=== PATIENT | male | born 1960 | race Caucasian/White ===

== ENCOUNTER 2016-09-13 05:34 | Emergency (ER) | payer OTHER ==
[~2016-09-13] VITALS: Ht 177.8 cm; Wt 72.6 kg
[~2016-09-13 05:34] MED LIST: AMOXICILLIN500 MG PO; ANAPROX DS550 MG PO; FLEXERIL10 MG PO; FLEXERIL5 MG PO; HYDROCODONE BIT1 T11 PO; MOTRIN800 MG PO; NORCO 325 MG-51 TAB PO; ULTRAM50 MG PO
[2016-09-13] MEDS ORDERED: AMOXICILLIN500 M2 PO (05:58)
[2016-09-13] MEDS ORDERED: Motrin,Rufen800 MG PO (05:58)
== END 2016-09-13 06:27 | disposition home or self-care (01) ==
LOC: ED 05:34
DX: K04.7 Periapical abscess without sinus (principal); H92.01 Otalgia, right ear; Z88.0 Allergy status to penicillin

== ENCOUNTER 2018-01-20 18:33 | Emergency (ER) | payer OTHER ==
[~2018-01-20] VITALS: Ht 177.8 cm; Wt 72.6 kg
[~2018-01-20 18:33] MED LIST changes: +AMOXICILLIN500 M2 PO; +Motrin,Rufen800 MG PO
[2018-01-20 19:08] LABS: BILIRUBIN NEGATIVE (NEGATIVE); BLOOD NEGATIVE (NEGATIVE); CLARITY SL CLOUDY (CLEAR); COLOR YELLOW (YELLOW); GLUCOSE NEGATIVE (NEGATIVE); KETONE NEGATIVE (NEGATIVE); LEUKO ESTERASE NEGATIVE (NEGATIVE); NITRITE NEGATIVE (NEGATIVE); PH 8.5 (5.0-9.0); SPECIFIC GRAVITY 1.015 (1.005-1.030); UROBILINOGEN 0.2 E.U./dl (0.2-1.0)
[2018-01-20 19:16] LABS: BACTERIA 1+; EPITHELIAL CELLS 0-2
[2018-01-20] MEDS ORDERED: NAPROSYN500 MG PO (20:07)
[2018-01-20] MEDS ORDERED: CYCLOBENZAPRINE10 MG PO (20:07)
[2018-01-20] MEDS ORDERED: PREDNISONE20 M1 PO (20:07)
== END 2018-01-20 20:13 | disposition home or self-care (01) ==
LOC: ED 18:33
PROVIDERS: Nurse Practitioner Family
DX: M54.5 Low back pain (principal); M62.830 Muscle spasm of back; Z88.0 Allergy status to penicillin

== ENCOUNTER 2018-02-11 01:12 | Emergency (ER) | payer OTHER ==
[~2018-02-11] VITALS: Ht 177.8 cm; Wt 72.6 kg
[~2018-02-11 01:12] MED LIST changes: +CYCLOBENZAPRINE10 MG PO; +NAPROSYN500 MG PO; +PREDNISONE20 M1 PO
== END 2018-02-11 04:08 | disposition home or self-care (01) ==
LOC: ED 01:12
DX: S46.911A Strain of unspecified muscle, fascia and tendon at shoulder and upper arm level, right arm, initial encounter (principal); S20.211A Contusion of right front wall of thorax, initial encounter; S09.90XA Unspecified injury of head, initial encounter; Z88.0 Allergy status to penicillin; Z79.899 Other long term (current) drug therapy; W01.10XA Fall on same level from slipping, tripping and stumbling with subsequent striking against unspecified object, initial encounter; Y93.89 Activity, other specified; Y92.89 Other specified places as the place of occurrence of the external cause; Y99.8 Other external cause status

== ENCOUNTER 2021-04-06 08:07 | Emergency (ER) | payer OTHER ==
[~2021-04-06] VITALS: Ht 177.8 cm; Wt 68.5 kg
[2021-04-06 10:18] LABS: BASO # 0.1 10*3/uL (0.0-0.1); BASO % 0.5 % (0.0-1.0); EOS # 0.2 10*3/uL (0.0-0.4); EOS % 1.8 % (1.0-4.0); HEMATOCRIT 49.3 % (42.0-52.0); LYMPH # 2.9 10*3/uL (1.3-4.4); LYMPH % 22.8 % (27.0-41.0); MEAN CELL VOLUME 86.2 fl (80.0-94.0); MEAN CORPUSCULAR HGB 29.2 pg (27.0-31.0); MEAN CORPUSCULAR HGB CONC 33.9 g/dl (33.0-37.0); MEAN PLATELET VOLUME 10.9 fl (9.6-12.3); MONO # 0.7 10*3/uL (0.1-1.0); MONO % 5.2 % (3.0-9.0); NEUT # 8.9 10*3/uL (2.3-7.9); NEUT % 69.2 % (47.0-73.0); PLATELET COUNT AUTOMATED 200 10*3/uL (130-400); RED BLOOD COUNT 5.72 10*6/uL (4.50-5.90); RED CELL DISTRI WIDTH 13.2 % (0-14.5); WHITE BLOOD COUNT 12.8 10*3/uL (4.8-10.8)
[2021-04-06 10:33] LABS: ALKALINE PHOSPHATASE 62 U/L (45-117); BUN 11 mg/dl (7-24); CHLORIDE 110 mmol/L (98-107); CREATININE 0.68 mg/dL (0.70-1.30); SGOT/AST 12 IU/L (3-35); SGPT/ALT 20 U/L (12-78); SODIUM 140 mmol/L (136-145); TOTAL PROTEIN 7.6 gm/dL (6.4-8.2)
== END 2021-04-06 12:00 | disposition left against medical advice (07) ==
LOC: ED 08:07
PROVIDERS: Emergency Medicine
DX: R51.9 Headache, unspecified (principal)

== ENCOUNTER 2022-07-09 13:53 | Emergency (ER) | payer OTHER | END 2022-07-09 14:56 | disposition left against medical advice (07) | LOC: ED 13:53 | DX: S09.90XA Unspecified injury of head, initial encounter (principal); Z53.21 Procedure and treatment not carried out due to patient leaving prior to being seen by health care provider; X58.XXXA Exposure to other specified factors, initial encounter; Y93.89 Activity, other specified; Y92.89 Other specified places as the place of occurrence of the external cause; Y99.8 Other external cause status ==

== ENCOUNTER 2023-01-14 19:14 | Emergency (ER) | payer OTHER | END 2023-01-14 20:29 | disposition left against medical advice (07) | LOC: ED 19:14 | DX: M54.2 Cervicalgia (principal); Z88.0 Allergy status to penicillin; Z53.21 Procedure and treatment not carried out due to patient leaving prior to being seen by health care provider ==

== ENCOUNTER 2023-05-05 13:18 | Emergency (ER) | payer OTHER ==
[~2023-05-05] VITALS: Ht 177.8 cm; Wt 70.3 kg
[2023-05-05] MEDS ORDERED: OMNICEF300 MG PO (14:32)
== END 2023-05-05 14:41 | disposition home or self-care (01) ==
LOC: ED 13:18
DX: H66.91 Otitis media, unspecified, right ear (principal); M54.2 Cervicalgia; M25.511 Pain in right shoulder; Z88.0 Allergy status to penicillin

== ENCOUNTER 2023-07-02 04:48 | Emergency (ER) | payer OTHER ==
[~2023-07-02] VITALS: Ht 177.8 cm; Wt 68.0 kg
[~2023-07-02 04:48] MED LIST changes: +OMNICEF300 MG PO
== END 2023-07-02 05:34 | disposition home or self-care (01) ==
LOC: ED 04:48
DX: H66.91 Otitis media, unspecified, right ear (principal); Z88.0 Allergy status to penicillin

== ENCOUNTER 2024-04-24 00:31 | Emergency (ER) | payer OTHER ==
[~2024-04-24] VITALS: Ht 177.8 cm; Wt 70.3 kg
[2024-04-24] MEDS ORDERED: Tdap Vaccine 0.5 ML SYR (Adult Vaccine) IM ONE (01:05)
[2024-04-24] MEDS ORDERED: SEPTDS PO (01:19)
== END 2024-04-24 01:27 | disposition home or self-care (01) ==
LOC: ED 00:31
DX: L02.213 Cutaneous abscess of chest wall (principal); Z88.0 Allergy status to penicillin; Z87.891 Personal history of nicotine dependence

== ENCOUNTER 2024-05-04 10:42 | Emergency (ER) | payer OTHER ==
[~2024-05-04] VITALS: Ht 182.8 cm; Wt 68.0 kg
[~2024-05-04 10:42] MED LIST changes: +SEPTDS PO
[2024-05-04] MEDS ORDERED: SODIUM CHLORIDE 0.9% 1,000 ML IV ONE (11:00)
[2024-05-04] MEDS ORDERED: Ondansetron Hydrochloride 4 MG/2 ML VIAL IV ONE (11:05)
[2024-05-04] MEDS ORDERED: MORPHINE Sulfate 2 MG/ML SYR IV ONE (11:05)
[2024-05-04 11:16] LABS: BASO # 0.1 10*3/uL (0.0-0.1); BASO % 0.5 % (0.0-1.0); EOS # 0.4 10*3/uL (0.0-0.4); EOS % 4.6 % (1.0-4.0); HEMATOCRIT 44.6 % (42.0-52.0); MEAN CELL VOLUME 87.8 fl (80.0-94.0); MEAN CORPUSCULAR HGB 29.5 pg (27.0-31.0); MEAN CORPUSCULAR HGB CONC 33.6 g/dl (33.0-37.0); MEAN PLATELET VOLUME 10.5 fl (9.6-12.3); MONO # 0.5 10*3/uL (0.1-1.0); MONO % 5.3 % (3.0-9.0); NEUT # 5.2 10*3/uL (2.3-7.9); NEUT % 56.3 % (47.0-73.0); PLATELET COUNT AUTOMATED 203 10*3/uL (130-400); RED BLOOD COUNT 5.08 10*6/uL (4.50-5.90); RED CELL DISTRI WIDTH 13.1 % (0-14.5); WHITE BLOOD COUNT 9.2 10*3/uL (4.8-10.8)
[2024-05-04 11:30] LABS: BILIRUBIN Negative (Negative); BLOOD Negative (Negative); CLARITY Clear (Clear); COLOR Yellow (Yellow); GLUCOSE Negative (Negative); KETONE Negative (Negative); LEUKO ESTERASE Negative (Negative); NITRITE Negative (Negative); PH 5.5 (4.5-8.0); UROBILINOGEN 0.2 E.U./dl (0.0-1.0)
[2024-05-04 11:35] LABS: BUN 17 mg/dl (9-23); CHLORIDE 106 mmol/L (98-107)
[2024-05-04 12:11] LABS: EPITHELIAL CELLS 0-2; MUCOUS 2+; WBC 0-2 wbc/hpf (0-5)
[2024-05-04] MEDS ORDERED: MELOXICAM15 MG PO (12:34)
[2024-05-04] MEDS ORDERED: CYCLOBENZAPRINE10 MG PO (12:34)
== END 2024-05-04 12:51 | disposition home or self-care (01) ==
LOC: ED 10:42
PROVIDERS: Emergency Medicine
DX: R10.9 Unspecified abdominal pain (principal); R30.0 Dysuria; Z88.0 Allergy status to penicillin; Z79.2 Long term (current) use of antibiotics; Z79.899 Other long term (current) drug therapy

== ENCOUNTER → 2024-06-01 | Outpatient (CLI) | payer OTHER ==
[~2024-06-01] MED LIST changes: +MELOXICAM15 MG PO
[2024-06-01 14:53] LABS: VITAMIN D, 25-HYDROXY 21.2 ng/mL (30-100)
== END | disposition home or self-care (01) ==
LOC: RESCLI 03:03
PROVIDERS: ATTEND Student in an Organized Health Care Education/Training Program
DX: M54.50 Low back pain, unspecified (principal); R13.10 Dysphagia, unspecified; Z79.899 Other long term (current) drug therapy; Z98.890 Other specified postprocedural states; Z88.0 Allergy status to penicillin

== ENCOUNTER → 2024-06-22 | Outpatient (CLI) | payer OTHER | END | disposition home or self-care (01) | LOC: RESCLI 09:08 | PROVIDERS: ATTEND Family Medicine | DX: E78.5 Hyperlipidemia, unspecified (principal); E55.9 Vitamin D deficiency, unspecified; I10 Essential (primary) hypertension; M54.10 Radiculopathy, site unspecified; Z88.0 Allergy status to penicillin; Z79.899 Other long term (current) drug therapy ==

== ENCOUNTER → 2025-03-08 | Outpatient (CLI) | payer MEDICAID | END | disposition home or self-care (01) | LOC: RESCLI 10:26 | PROVIDERS: ATTEND Student in an Organized Health Care Education/Training Program | DX: I10 Essential (primary) hypertension (principal); E78.5 Hyperlipidemia, unspecified; E55.9 Vitamin D deficiency, unspecified; K21.9 Gastro-esophageal reflux disease without esophagitis; Z79.899 Other long term (current) drug therapy; Z98.890 Other specified postprocedural states ==